=== PATIENT | female | born 1980 | race Hispanic/Latino ===

== ENCOUNTER 2025-04-16 20:32 | Emergency (ER) | payer BC ==
[~2025-04-16] VITALS: Ht 162.6 cm; Wt 88.9 kg
[2025-04-16 20:43] VITALS: PULSE 81; RESP 20; TEMP 98.1
[2025-04-16] MEDS ORDERED: DIPHENHYDRAMINE25 MG PO (21:00)
[2025-04-16] MEDS ORDERED: DOXYCYCLINE HY100 MG PO (21:00)
[2025-04-16] MEDS ORDERED: IBUPROFEN600 MG PO (21:00)
[2025-04-16] MEDS: IBUPROFEN 200 MG TAB PO ONE (21:09)
[2025-04-16] MEDS: Clindamycin INJ 150 MG/ML 600 MG Vial IM ONE (21:09)
[2025-04-16 21:15] VITALS: BP 181/80; O2SAT 100
== END 2025-04-16 21:19 | disposition home or self-care (01) ==
LOC: FSED 20:47
DX: L03.818 Cellulitis of other sites (principal); I10 Essential (primary) hypertension; E78.5 Hyperlipidemia, unspecified; K21.9 Gastro-esophageal reflux disease without esophagitis; J45.909 Unspecified asthma, uncomplicated; Z87.442 Personal history of urinary calculi
CPT/HCPCS: 99282

== ENCOUNTER → 2025-05-02 | Day surgery (SDC) | payer BC ==
[~2025-05-02] MED LIST: ATORVASTATIN CA10 MG PO; CEPHALEXIN500 MG PO; CYMBALTA30 MG PO; DIPHENHYDRAMINE25 MG PO; DOXYCYCLINE HY100 MG PO; IBUPROFEN600 MG PO; LIDOCAINE HCL 2% LOCAL INJ 5 ML SDV VIAL INJ ONE; LOSARTAN POTASS25 MG PO; METOCLOPRAMIDE H5 MG PO; METOCLOPRAMIDE HCL 10 MG/2ML VIAL ONE; OMEPRAZOLE40 MG PO; ONDANSETRON HCL INJ 2MG/ML 2ML 2 MG/ML VIAL ONE; ONDANSETRON ODT8 MG PO; PROPOFOL IV EMULSION 10 MG/ML 20 ML VIAL ONE; SUCRALFATE1 GM PO; WIXELA 250-501 EACH INH
[2025-05-02 10:23] VITALS: TEMP 98.1
[2025-05-02 10:55] VITALS: BP 138/84; PULSE 81; RESP 16; O2SAT 99
[2025-05-02] MEDS: LACTATED RINGER'S 1,000 ML ONE (12:45)
== END | disposition home or self-care (01) ==
LOC: OR 08:29
PROVIDERS: ATTEND Internal Medicine Gastroenterology
DX: K29.60 Other gastritis without bleeding (principal); K21.00 Gastro-esophageal reflux disease with esophagitis, without bleeding; B96.81 Helicobacter pylori [H. pylori] as the cause of diseases classified elsewhere; K22.2 Esophageal obstruction; K44.9 Diaphragmatic hernia without obstruction or gangrene; I10 Essential (primary) hypertension; J45.909 Unspecified asthma, uncomplicated; E78.00 Pure hypercholesterolemia, unspecified; Z68.36 Body mass index [BMI] 36.0-36.9, adult; Z87.442 Personal history of urinary calculi; Z88.5 Allergy status to narcotic agent; Z79.899 Other long term (current) drug therapy; Z01.810 Encounter for preprocedural cardiovascular examination
CPT/HCPCS: 43239; 43450; 93005; J2003; J2405; J2470; J2704; J2765; J7121